=== PATIENT | female | born 1990 | race Caucasian/White ===

== ENCOUNTER 2018-12-06 07:48 | Emergency (ER) | payer OTHER ==
[~2018-12-06] VITALS: Ht 167.6 cm; Wt 68.5 kg
[~2018-12-06 07:48] MED LIST: ACETAMINOPHEN-1 EAC1 PO; BACTRIM DS TAB1 EACH PO; BENADRYL25 MG PO; IBUPROFEN400 MG PO; IBUPROFEN600 MG PO; IBUPROFEN800 MG PO; IRON18 MG PO; KEFLEX500 MG PO; KNEE SUPPORT1 EACH MISC; MACROBID 100 M100 MG PO; NORCO 5-325 TA1 EACH PO; NYSTATIN100000 UN1 PO; PENICILLIN V P500 MG PO; PRENATAL-FOLIC1 EACH PO; PYRIDIUM200 MG PO
[2018-12-06] MEDS ORDERED: KETOROLAC TROME10 MG PO (08:21)
[2018-12-06] MEDS ORDERED: BACLOFEN10 MG PO (08:21)
== END 2018-12-06 08:42 | disposition home or self-care (01) ==
LOC: ED 07:48
DX: M99.01 Segmental and somatic dysfunction of cervical region (principal); Z87.442 Personal history of urinary calculi; F17.200 Nicotine dependence, unspecified, uncomplicated; Z88.5 Allergy status to narcotic agent; Z79.899 Other long term (current) drug therapy
CPT/HCPCS: 99283

== ENCOUNTER 2019-08-20 19:39 | Emergency (ER) | payer OTHER ==
[~2019-08-20] VITALS: Ht 167.6 cm; Wt 68.5 kg
--- OUTSIDE RECORDS SUMMARY | ~2019-08-20 | XMS | Clinical Summary ---
Demographics + + + | Address | [address] | | | [place] [address] | + + + | Home Phone | | + + + | Preferred Language | Unknown | + + + | Marital Status | Single | + + + | Religion Affiliation | Unknown | + + + | Race | Unknown | + + + | Ethnic Group | Unknown | + + + Author + + + | Author | [facility] | | | and [place] | + + + | Organization | [facility] | | | and [place] | + + + | Address | Unknown | + + + | Phone | Unavailable | + + + Support + + +---------+ + | Name | Relationship | Address | Phone | + + +---------+ + | Mary Brumfield | ECON | Unknown | | + + +---------+ + Care Team Providers + +------+ + | Care Financial Investigator Name | Role | Phone | + +------+ + | No, Physician | PCP | Unavailable | + +------+ + Allergies + + + + + + | Active Allergy | Reactions | Severity | Noted | Comments | | | | | Date | | + + + + + + | Tramadol | | | 03/23/20 | dizziness | | | | | 15 | | + + + + + + Medications + + + +---------+------+------+-------+ | Medication | Sig | Dispensed | Refills | Star | End | Statu | | | | | | t | Date | s | | | | | | Date | | | + + + +---------+------+------+-------+ | | Inject into the | | 0 | | | Activ | | MedroxyPROGESTERone | muscle. | | | | | e | | Acetate | | | | | | | | (DEPO-PROVERA IM) | | | | | | | + + + +---------+------+------+-------+ | acetaminophen | Place 650 mg | | 0 | | | Activ | | (TYLENOL) 650 mg | rectally every 4 | | | | | e | | suppository | hours as needed for | | | | | | | | Fever. | | | | | | + + + +---------+------+------+-------+ | ibuprofen | Take 800 mg by mouth | | 0 | | | Activ | | (ADVIL,MOTRIN) 800 | every 6 hours as | | | | | e | | MG tablet | needed for Pain. | | | | | | + + + +---------+------+------+-------+ Active Problems + + + | Problem | Noted Date | + + + | Chronic tonsillitis | 03/30/2015 | + + + Family History + + +------+ + | Medical History | Relation | Name | Comments | + + +------+ + | Diabetes | | | | + + +------+ + | Hypertension | | | | + + +------+ + + +------+--------+ + | Relation | Name | Status | Comments | + +------+--------+ + Social History + +-------+ +--------+------+ | Tobacco Use | Types | Packs/Day | Years | Date | | | | | Used | | + +-------+ +--------+------+ | Current Every Day | | | | | | Smoker | | | | | + +-------+ +--------+------+ + + + | Sex Assigned at | Date Recorded | | | | + + + | Not on file | | + + + + + + + | Job Start Date | Occupation | Industry | + + + + | Not on file | Not on file | Not on file | + + + + + + + + | Travel History | Travel Start | Travel End | + + + + + + | No recent travel history available. | + + Last Filed Vital Signs + + + + | Vital Sign | Reading | Time Taken | + + + + | Blood Pressure | 100/60 | 03/29/2015 1543 PDT | + + + + | Pulse | 67 | 03/29/2015 1543 PDT | + + + + | Temperature | - | - | + + + + | Respiratory Rate | 18 | 03/23/20151404 PDT | + + + + | Oxygen Saturation | 93% | 03/29/20151542 PDT | + + + + | Inhaled Oxygen | - | - | | Concentration | | | + + + + | Weight | 63.5 kg (140 lb) | 03/29/20151542 PDT | + + + + | Height | 167.6 cm (5' 6") | 03/29/20151542 PDT | + + + + | Body Mass Index | 22.6 | 03/29/2015 1543 PDT | + + + + Plan of Treatment + + + + + | Health Maintenance | Due Date | Last Done | Comments | + + + + + | Vaccine: | | | | | Dtap/Tdap/Td (1 - | 9 | | | | Tdap) | | | | + + + + + | Cervical Cancer | | | | | Screening (Pap) | 1 | | | + + + + + | Vaccine: Influenza | | | | | (#1) | 9 | | | + + + + + Results Not on filefrom Last 3 Months Insurance + +--------+ +--------+ +---------+--------+ | Payer | Benefi | Subscriber | Effect | Phone | Address | Type | | | t Plan | ID | mekhi | | | | | | / | | Dates | | | | | | Group | | | | | | + +--------+ +--------+ +---------+--------+ | [employer] | [employer] | [id number] | 03/04/20 | [phone] | | Medica | | MEDICAID HMO | HEALTH | | 15-Pre | 1 | | id | | | MDCD | | sent | | | | | | HMO [place] | | | | | | + +--------+ +--------+ +---------+--------+ + +--------+ +--------+ + + | Guarantor Name | Accoun | Relation to | Date | Phone | Billing Address | | | t Type | Patient | of | | | | | | | | | | + +--------+ +--------+ + + | Anila Sampson | Person | Self [birth year] | [address] | | | al/[place] | | 1990 | [phone] | [address] [place] | | | dong | | | 2 (Home) | [phone] | + +--------+ +--------+ + + Advance Directives Patient has advance care planning documents on file. For more information, please contact:[facility] [place] [address]
--- OUTSIDE RECORDS SUMMARY | ~2019-08-20 | XMS | Clinical Summary ---
Demographics + + + | Address | [address] | | | [place] [address] | + + + | Home Phone | | + + + | Preferred Language | Unknown | + + + | Marital Status | Single | + + + | Scientologist Affiliation | Unknown | + + + | Race | Unknown | + + + | Ethnic Group | Unknown | + + + Author + + + | Author | [facility] | | | and [place] | + + + | Organization | [facility] | | | [...] Team Providers + +------+ + | Care Child Development Professor Name | Role | Phone | + [...] | [employer] | [employer] | [id number] | 03/04/20 | [phone] | | Medica | | MEDICAID HMO [...] | | al/[place]avier | | 1990 | [phone] | [address] [place] | | | dong | | | 2 (Home) | [phone] | + +--------+ +--------+ + + Advance Directives Patient has advance care planning documents on file. For more information, please contact:Located within [facility] [place] [address]
[~2019-08-20 19:39] MED LIST changes: +BACLOFEN10 MG PO; +KETOROLAC TROME10 MG PO
== END 2019-08-20 21:09 | disposition home or self-care (01) ==
LOC: ED 19:39
DX: G89.29 Other chronic pain (principal); M54.2 Cervicalgia; F17.200 Nicotine dependence, unspecified, uncomplicated; Z88.5 Allergy status to narcotic agent; Z79.899 Other long term (current) drug therapy
CPT/HCPCS: 99283

== ENCOUNTER 2020-11-01 23:03 | Emergency (ER) | payer OTHER ==
[~2020-11-01] VITALS: Ht 167.6 cm; Wt 67.1 kg
[2020-11-02] MEDS ORDERED: FLAGYL500 MG PO (02:38)
[2020-11-02] MEDS ORDERED: DOXYCYCLINE HY100 MG PO (02:38)
== END 2020-11-02 03:10 | disposition home or self-care (01) ==
LOC: ED 23:03
DX: R10.2 Pelvic and perineal pain (principal); F17.200 Nicotine dependence, unspecified, uncomplicated; Z88.5 Allergy status to narcotic agent
CPT/HCPCS: 74177; 80053; 81001; 83690; 84703; 85025; 87491; 87591; 99284-25; J0696; J1885; J7121; Q9967

== ENCOUNTER 2021-06-09 16:43 | Emergency (ER) | payer OTHER ==
[~2021-06-09] VITALS: Ht 167.6 cm; Wt 67.1 kg
[~2021-06-09 16:43] MED LIST changes: +DOXYCYCLINE HY100 MG PO; +FLAGYL500 MG PO
== END 2021-06-09 17:36 | disposition home or self-care (01) ==
LOC: ED 16:43
DX: S90.32XA Contusion of left foot, initial encounter (principal); W22.8XXA Striking against or struck by other objects, initial encounter; F17.200 Nicotine dependence, unspecified, uncomplicated; Z88.5 Allergy status to narcotic agent
CPT/HCPCS: 73630; 99283-25

== ENCOUNTER 2022-03-01 06:53 | Inpatient (IN) | payer OTHER ==
[~2022-03-01] VITALS: Ht 162.6 cm; Wt 76.2 kg
--- NOTE | 2022-03-14 08:54 | NUR ---
03/14/22 0854 Beck,Chante 0882 PT TO ROOM 104 WITH FBC RN AND AT BEDSIDE. VSS. PT DENIES PAIN AND NAUSEA. PT UNABLE TO MOVE LEG OR FEET, SPINAL EDUCATION GIVEN, PT DENIES SOB. IV SITE WNL AND INFUSING LR WITH 30 PIT. 0840 BABY TO CHEST WITH FBC RN. HOB INCREASED SLIGHTLY AND PT CONTINUES TO DENY NAUSEA.
--- NOTE | 2022-03-15 12:02 | PR ---
[facility] [address] [place] [address] Signed PP Progress Notes Datetime Report Generated by CPN: 03/15/2022 12:01 SUBJECTIVE: [id number] Pain: Within Normal Limits Nausea/Vomiting: Denies Vital Signs: [id number] Vital Signs: Reviewed; Within Normal Limits Notable Details: PP Hgb/Hct = 10.2/30.2 EXAM: Ongoing Abdomen/Uterus: Normal Lochia: Normal Extremities: Normal Incision: Normal IMPRESSION/PLAN/PROCEDURES: [id number] Impression: Normal Progression Plan: Continue Present Management Procedures: None Progress Notes: Doing well, without complaint, up moving around, voiding without difficulty. Signing Physician: Zaida Cavazos MD Copies: ~ *Electronically Signed* 03/15/22 1201 ZAIDA CAVAZOS MD PATIENT NAME: CASI ANGELA PROGRESS NOTE DATE OF : 90 PHYSICIAN: ZAIDA CAVAZOS MD RPT #: [id number] REPORT IS CONFIDENTIAL AND NOT TO BE RELEASED WITHOUT AUTHORIZATION
--- NOTE | 2022-03-15 12:02 | OR ---
[facility] [address] [place], [place] [address] Signed DATE OF OPERATION: 03/14/2022 SURGEON: Maxim Watts MD The patient of Dr. Watts. PREOPERATIVE DIAGNOSIS: Term , previous section x2. POSTOPERATIVE DIAGNOSIS: Term , previous section x2. PROCEDURE: Repeat low transverse segment section, delivery of live female infant. RAILROADER: Dr. Ritchie. ANESTHESIA: Spinal. ESTIMATED BLOOD LOSS: 500 mL. COMPLICATIONS: None. DRAINS: Kaplan to bladder. FINDINGS: Live female infant, Apgars 8 and 9. Weight 6 pounds 13 ounces. Normal uterus, normal tubes and ovaries bilateral. DESCRIPTION OF PROCEDURE: The patient was brought to the operating room, placed supine in position. After adequate spinal anesthesia was obtained was prepped and draped usual sterile fashion. A Pfannenstiel skin incision was made through previous surgical scar using the scalpel. Subcutaneous tissue was dissected with scalpel and Bovie. The fascia was nicked with scalpel and extended in transverse fashion using curved scissors. The underlying Electronically Signed By: MAXIM WATTS MD 03/15/22 1202 PATIENT NAME: CASI ANGELA OPERATIVE REPORT DATE OF : 89 REPORT #: [id number] PHYSICIAN: MAXIM WATTS MD PCP: MAGALY CAMARA MD REPORT IS CONFIDENTIAL AND NOT TO BE RELEASED WITHOUT AUTHORIZATION [facility] [address] [place], [place] [address] Signed abdominal musculature was bluntly and sharply from the fascia above and below the incision. The abdominal musculature was bluntly and sharply along the midline. The peritoneum was grasped, hemostats elevated, nicked with curved scissors and extended in vertical fashion using curved scissors. The Hernando self-retaining retractor was inserted into the incision and tightened in place. The lower uterine segment was identified. The bladder noted to be well below the area of dissection. Lower uterine segment was carefully nicked with the scalpel and the incision extended in transverse fashion using curved scissors. Clear fluid came from the incision. The was noted to be in the vertex SIDDHARTHA presentation. Infant head easily delivered. The rest of the was easily delivered from the incision and the cord doubly clamped and cut. The infant passed off table in good condition awaiting nurse. The placenta was then manually removed. The uterine cavity explored a lap pad to remove any retained membranes. An angle stitch of 0 Monocryl was placed at one in the incision and a running locking stitch of 0-Monocryl starting at the other end used to close the incision. A second running stitch of 0 Monocryl was used to imbricate the first layer. Good hemostasis was noted except for one small area at the right angle which was controlled with a vikryv-py-peogm stitch of 0 Monocryl. When good hemostasis was obtained, the entire pelvis was irrigated, suctioned, and examined, and any superficial bleeding spots cauterized with the Bovie and good hemostasis was obtained. The Hernando retractor was removed. A sheet of ACell placed over the lower uterine segment to help with healing. The anterior wall peritoneum was then closed using running stitch of 2-0 Vicryl. The abdominal musculature was reapproximated using interrupted stitches of 0 Vicryl suture. The abdominal wall incision was irrigated, suctioned, and examined, and any bleeding spots cauterized with the Bovie. Powdered ACell was sprinkled over the abdominal musculature to help with healing. The fascia was then closed using two running stitch of 0 Vicryl suture meeting in the midline. The subcutaneous tissue was irrigated, suctioned, and examined, and any bleeding spots cauterized with the Bovie. The subcutaneous tissue was then closed using interrupted stitches of 3-0 Vicryl sutures. Skin was reapproximated using skin clips. The patient tolerated the procedure well, went to recovery room in good condition. The sponge, needle, and instrument count were correct at the end of procedure. Maxim Watts MD MJB/MODL /[id number] Electronically Signed By: MAXIM WATTS MD 03/15/22 1202 PATIENT NAME: CASI ANGELA OPERATIVE REPORT DATE OF : [birth year] REPORT #: [id number] PHYSICIAN: MAXIM WATTS MD PCP: MAGALY CAMARA MD REPORT IS CONFIDENTIAL AND NOT TO BE RELEASED WITHOUT AUTHORIZATION [address] [address] Signed Copies: ~ Electronically Signed By: MAXIM WATTS MD 03/15/22 1202 PATIENT NAME: JULIO CÉSARCASIDANDRE GAMBLE OPERATIVE REPORT DATE OF : [birth year] REPORT #: [id number] PHYSICIAN: MAXIM WATTS MD PCP: MAGALY CAMARA MD REPORT IS CONFIDENTIAL AND NOT TO BE RELEASED WITHOUT AUTHORIZATION
--- NOTE | 2022-03-16 11:32 | PR ---
[facility] [address] [place] [address] Signed PP Progress Notes Datetime Report Generated by CPN: 03/16/2022 11:32 SUBJECTIVE: [id number] Pain: Within Normal Limits Nausea/Vomiting: Denies Vital Signs: [id number] Vital Signs: Reviewed; Within Normal Limits Notable Details: PP Hgb/Hct = 10.2/30.2 EXAM: Met Abdomen/Uterus: Normal Lochia: Normal Extremities: Normal Incision: Normal IMPRESSION/PLAN/PROCEDURES: [id number] Impression: Normal Progression Plan: Discharge Procedures: None Progress Notes: Doing well, without compalint, normal post-op tenderness, moving around room well, ready to go home. Signing Physician: Zaida Cavazos MD Copies: ~ *Electronically Signed* 03/16/22 1132 ZAIDA CAVAZOS MD PATIENT NAME: CASI ANGELA PROGRESS NOTE DATE OF : 89 PHYSICIAN: ZAIDA CAVAZOS MD RPT #: [id number] REPORT IS CONFIDENTIAL AND NOT TO BE RELEASED WITHOUT AUTHORIZATION
== END 2022-03-16 12:25 | disposition home or self-care (01) | DRG 788 ==
LOC: FBC 03-14 05:40
PROVIDERS: ADMIT General Practice; ATTEND General Practice
PROC: 10D00Z1 Extraction of Products of Conception, Low, Open Approach (ICD-10-PCS; principal; 2022-03-14 06:45)
DX: O34.211 Maternal care for low transverse scar from previous cesarean delivery (principal); Z37.0 Single live birth; Z3A.39 39 weeks gestation of pregnancy; Z20.822 Contact with and (suspected) exposure to COVID-19
CPT/HCPCS: 36415; 85027; 86850; 86900; 86901; A9270; J0690; J2001; J2274; J2405; J2550; J2590; J2765; J7121

== ENCOUNTER 2023-06-14 07:30 | Emergency (ER) | payer OTHER ==
[~2023-06-14] VITALS: Ht 152.4 cm; Wt 70.1 kg
[2023-06-14 07:58] LABS: BASOPHILS 0.4 % (0-2); EOSINOPHILS 0.6 % (0-6); HEMATOCRIT 43.9 % (35.0-50.0); HEMOGLOBIN 14.2 g/dL (12.0-18.0); LYMPHOCYTES 13.8 % (24-44); MCH 30.1 (27-36); MCHC 32.3 g/dl (30-36); MCV 93.1 fl (81-99); MONOCYTES 3.9 % (0-12); NEUTROPHILS 81.3 % (39-80); PLATELET COUNT 302 K/uL (140-440); RBC 4.72 M/ul (4.3-5.7); RDW 13.6 (10.5-15.0)
[2023-06-14 08:09] LABS: ALBUMIN 3.7 g/dL (3.4-5.0); ALBUMIN/GLOBULIN RATIO 0.93 (1.1-2.4); ANION GAP 13.1 (7-21); BILIRUBIN, TOTAL 0.2 ng/dL (0.2-1.0); BUN/CREATININE RATIO 19.04 (6.0-28.6); CALCIUM 8.8 mg/dL (8.5-10.1); CREATININE, SERUM 0.63 mg/dL (0.55-1.02); POTASSIUM 4.1 mmol/L (3.5-5.1); PROTEIN, TOTAL 7.7 g/dL (6.4-8.2)
[2023-06-14 09:35] LABS: BILIRUBIN, URINE NEGATIVE (negative); BLOOD/HGB, URINE NEGATIVE (Negative); KETONE, URINE NEGATIVE (Negative); LEUK ESTERASE, URINE NEGATIVE (negative); NITRITE, URINE NEGATIVE (negative)
[2023-06-14] MEDS ORDERED: ONDANSETRON ODT4 MG PO (09:54)
[2023-06-14 10:03] VITALS: BP 100/78
== END 2023-06-14 10:06 | disposition home or self-care (01) ==
LOC: ED 07:30
PROVIDERS: Student in an Organized Health Care Education/Training Program
DX: K52.9 Noninfective gastroenteritis and colitis, unspecified (principal); G43.909 Migraine, unspecified, not intractable, without status migrainosus; F17.200 Nicotine dependence, unspecified, uncomplicated; Z88.5 Allergy status to narcotic agent; Z87.442 Personal history of urinary calculi
CPT/HCPCS: 36415; 80053; 81003; 83690; 84703; 85025; 96374; 96375; 99284-25; J1200; J1885; J2765; J7030

== ENCOUNTER 2024-05-02 06:55 | Emergency (ER) | payer SELFPAY ==
[~2024-05-02] VITALS: Ht 162.6 cm; Wt 80.5 kg
[~2024-05-02 06:55] MED LIST changes: +ONDANSETRON ODT4 MG PO
[2024-05-02] MEDS ORDERED: predniSONE 20 MG TAB PO ONE (07:30)
[2024-05-02] MEDS ORDERED: AMOXICILLIN 500 MG CAP PO ONE (07:45)
[2024-05-02] MEDS ORDERED: AMOXICILLIN500 MG PO (07:46)
[2024-05-02 07:53] VITALS: BP 108/62
== END 2024-05-02 07:53 | disposition home or self-care (01) ==
LOC: ED 06:55
DX: J02.0 Streptococcal pharyngitis (principal); F17.200 Nicotine dependence, unspecified, uncomplicated; Z88.5 Allergy status to narcotic agent
CPT/HCPCS: 87651; 99283; J7512

== ENCOUNTER 2024-08-30 13:35 | Emergency (ER) | payer OTHER ==
[~2024-08-30] VITALS: Ht 162.6 cm; Wt 78.6 kg
[~2024-08-30 13:35] MED LIST changes: +AMOXICILLIN500 MG PO
[2024-08-30] MEDS ORDERED: SODIUM CHLORIDE 0.9% 1,000 ML IV PRN (14:00)
[2024-08-30] MEDS ORDERED: METOCLOPRAMIDE HCL 10 MG/2 ML SDV IV ONE (14:00)
[2024-08-30] MEDS ORDERED: diphenhydrAMINE HCL 50 MG/ML VIAL IV ONE (14:00)
[2024-08-30] MEDS ORDERED: KETOROLAC TROMETHAMINE 30 MG/ML VIAL IV ONE (14:00)
[2024-08-30] MEDS ORDERED: ONDANSETRON ODT4 MG PO (16:15)
[2024-08-30] MEDS ORDERED: KETOROLAC TROME10 MG PO (16:15)
[2024-08-30 16:25] VITALS: BP 105/68
== END 2024-08-30 16:26 | disposition home or self-care (01) ==
LOC: ED 13:35
DX: G43.909 Migraine, unspecified, not intractable, without status migrainosus (principal); F17.200 Nicotine dependence, unspecified, uncomplicated; Z88.5 Allergy status to narcotic agent
CPT/HCPCS: 96361; 96374; 96375; 99283-25; J1200; J1885; J2765; J7030

== ENCOUNTER 2025-03-20 07:51 | Emergency (ER) | payer OTHER ==
[~2025-03-20] VITALS: Ht 162.6 cm; Wt 78.6 kg
[2025-03-20 08:33] LABS: EOSINOPHILS 3.8 % (0.7-5.8); HEMOGLOBIN 13.8 g/dL (11.2-15.7); LYMPHOCYTES 33.3 % (19.3-51.7); MCH 30.3 PG (25.6-32.2); MCHC 32.9 g/dL (32.2-35.5); MCV 92.3 fL (79.4-94.8); MONOCYTES 8.6 % (4.7-12.5); NEUTROPHILS 52.9 % (34.0-71.1); PLATELET COUNT 251 K/uL (182-369); RBC 4.55 M/uL (3.93-5.22)
[2025-03-20 08:55] LABS: ALBUMIN 3.8 g/dL (3.4-5.0); ALBUMIN/GLOBULIN RATIO 0.97 (1.1-2.4); ANION GAP 10.2 (7-21); BILIRUBIN, TOTAL 0.6 mg/dL (0.2-1.0); BUN/CREATININE RATIO 14.28 (6.0-28.6); CALCIUM 8.8 mg/dL (8.5-10.1); CREATININE, SERUM 0.63 mg/dL (0.55-1.02); POTASSIUM 4.2 mmol/L (3.5-5.1); PROTEIN, TOTAL 7.7 g/dL (6.4-8.2)
[2025-03-20 09:08] LABS: ABO A; RH POSITIVE
[2025-03-20 09:17] LABS: BILIRUBIN, URINE NEGATIVE (negative); BLOOD/HGB, URINE NEGATIVE (Negative); KETONE, URINE NEGATIVE (Negative); LEUK ESTERASE, URINE NEGATIVE (negative); NITRITE, URINE NEGATIVE (negative)
[2025-03-20 09:53] VITALS: BP 106/88
== END 2025-03-20 09:53 | disposition home or self-care (01) ==
LOC: ED 07:51
PROVIDERS: Emergency Medicine
DX: N93.9 Abnormal uterine and vaginal bleeding, unspecified (principal); F17.200 Nicotine dependence, unspecified, uncomplicated; Z88.8 Allergy status to other drugs, medicaments and biological substances
CPT/HCPCS: 36415; 76801; 76817; 80053; 81003; 84702; 85025; 86900; 86901; 99284-25

== ENCOUNTER 2025-04-09 10:21 | Emergency (ER) | payer OTHER ==
[~2025-04-09] VITALS: Ht 162.6 cm; Wt 78.6 kg
--- OUTSIDE RECORDS SUMMARY | 2025-04-09 10:26 | XMS ---
PreManage Notification: CASI ANGELA Security Software Applications Architect Events No recent Security Events currently on file CRITERIA MET - [facility] - 2 Visits in 30 Days CARE PROVIDERS -, [facility] Dentist: Resident Services Coordinator Current [place] PHONE: [phone] -[facility]- Dentist: Resident Services Coordinator Current [facility] PHONE: [phone] [facility]: [facility] Current FAMILY PHONE: [phone] BERNARD Mckoy Nurse Practitioner: Family Current PHONE: Unknown Kathleen has no Care Guidelines for this patient. Vick VISIT COUNT (12 MO.) 4 [facility] TOTAL 4 NOTE: Visits indicate total known visits. ED/UCC VISIT TRACKING (12 MO.) 04/09/2025 10:22 [facility] [place] TYPE: Emergency COMPLAINT: - VAGINAL BLEEDING 03/20/2025 07:52 [facility] [place] TYPE: Emergency COMPLAINT: - VAGINAL BLEEDING/ 6 WEEKS PREG DIAGNOSES: - Abnormal uterine and vaginal bleeding, unspecified - Allergy status to other drugs, medicaments and biological substances - Nicotine dependence, unspecified, uncomplicated 08/30/2024 13:35 [facility] [place] TYPE: Emergency COMPLAINT: - HEADACHE DIAGNOSES: - Allergy status to narcotic agent - Headache, unspecified - Migraine, unspecified, not intractable, without status migrainosus - Nicotine dependence, unspecified, uncomplicated 05/02/2024 06:55 [facility] [place] TYPE: Emergency COMPLAINT: - COLD SYMPTOMS DIAGNOSES: - Acute pharyngitis, unspecified - Allergy status to narcotic agent - Nicotine dependence, unspecified, uncomplicated - Streptococcal pharyngitis INPATIENT VISIT TRACKING (12 MO.) No inpatient visits to display in this time frame [email or web address]
[2025-04-09] MEDS ORDERED: SODIUM CHLORIDE 0.9% 1,000 ML IV PRN (10:45)
[2025-04-09] MEDS ORDERED: HYDROmorphone HCL 1 MG/ML SYR IV ONE (10:45)
[2025-04-09] MEDS ORDERED: ondansetron HCL 4 MG/2 ML VIAL IV ONE ×2 (10:45→12:15)
[2025-04-09 10:53] LABS: BASOPHILS 0.6 % (0.1-1.2); EOSINOPHILS 1.9 % (0.7-5.8); HEMATOCRIT 41.7 % (34.1-44.9); HEMOGLOBIN 14.1 g/dL (11.2-15.7); LYMPHOCYTES 28.1 % (19.3-51.7); MCHC 33.8 g/dL (32.2-35.5); MCV 91.6 fL (79.4-94.8); MONOCYTES 6.4 % (4.7-12.5); NEUTROPHILS 62.6 % (34.0-71.1); PLATELET COUNT 269 K/uL (182-369); RBC 4.55 M/uL (3.93-5.22)
[2025-04-09 11:12] LABS: ALBUMIN 3.9 g/dL (3.4-5.0); ALBUMIN/GLOBULIN RATIO 0.98 (1.1-2.4); ANION GAP 14.7 (7-21); BILIRUBIN, TOTAL 0.5 mg/dL (0.2-1.0); BUN/CREATININE RATIO 12.16 (6.0-28.6); CALCIUM 8.9 mg/dL (8.5-10.1); CREATININE, SERUM 0.74 mg/dL (0.55-1.02); POTASSIUM 3.7 mmol/L (3.5-5.1); PROTEIN, TOTAL 7.9 g/dL (6.4-8.2)
[2025-04-09 11:17] LABS: ABO A; RH POSITIVE
[2025-04-09 11:38] LABS: BILIRUBIN, URINE NEGATIVE (negative); BLOOD/HGB, URINE LARGE (Negative); KETONE, URINE SMALL (Negative); LEUK ESTERASE, URINE NEGATIVE (negative); NITRITE, URINE NEGATIVE (negative); PH, URINE 6.5 (5-7)
[2025-04-09 11:51] LABS: BACTERIA, URINE NONE SEEN /hpf (negative); CASTS, URINE NONE SEEN \\lpf; COLLECTION TYPE, URINE CLEAN CATCH; CRYSTALS, URINE NONE SEEN (0-1+); EPITHELIAL CELLS, URINE SQUAMOUS 3+ /lpf (0-1+); REFLEX CULTURE, URINE No (No); WHITE BLOOD CELLS, URINE 0-1 /HPF (0-5)
[2025-04-09] MEDS ORDERED: PROCHLORPERAZINE EDISYLATE 10 MG/2 ML VIAL IV ONE (12:45)
[2025-04-09] MEDS ORDERED: diphenhydrAMINE HCL 50 MG/ML VIAL IV ONE (12:45)
[2025-04-09] MEDS ORDERED: ONDANSETRON ODT4 MG PO (12:52)
[2025-04-09] MEDS ORDERED: PROMETHAZINE HC25 M1 PO (12:52)
[2025-04-09] MEDS ORDERED: HYDROCODON-ACE1 EA10 PO (12:52)
[2025-04-09 13:33] VITALS: BP 92/57
== END 2025-04-09 13:33 | disposition home or self-care (01) ==
LOC: ED 10:21
PROVIDERS: Emergency Medicine
DX: O36.80X0 Pregnancy with inconclusive fetal viability, not applicable or unspecified (principal); F17.200 Nicotine dependence, unspecified, uncomplicated; Z88.5 Allergy status to narcotic agent
CPT/HCPCS: 36415; 76801; 76817; 80053; 81001; 84702; 84703; 85025; 86900; 86901; 96374; 96375; 96376; 99284-25; J0780; J1171; J1200; J2405; J7030

== ENCOUNTER 2025-07-06 11:15 | Emergency (ER) | payer OTHER ==
[~2025-07-06] VITALS: Ht 162.6 cm; Wt 79.0 kg
[~2025-07-06 11:15] MED LIST changes: +HYDROCODON-ACE1 EA10 PO; +PROMETHAZINE HC25 M1 PO
[2025-07-06] MEDS ORDERED: METOCLOPRAMIDE HCL 10 MG/2 ML SDV IV ONE (11:30)
[2025-07-06] MEDS ORDERED: KETOROLAC TROMETHAMINE 15 MG/ML VIAL IV ONE (11:30)
[2025-07-06] MEDS ORDERED: SODIUM CHLORIDE 0.9% 1,000 ML IV PRN (11:30)
[2025-07-06] MEDS ORDERED: BUTALB-ACETAMI1 EAC3 PO (12:03)
[2025-07-06 12:44] VITALS: BP 94/50
== END 2025-07-06 12:40 | disposition home or self-care (01) ==
LOC: ED 11:15
DX: G43.909 Migraine, unspecified, not intractable, without status migrainosus (principal); R10.13 Epigastric pain; R11.2 Nausea with vomiting, unspecified; F17.200 Nicotine dependence, unspecified, uncomplicated; Z87.442 Personal history of urinary calculi; Z88.5 Allergy status to narcotic agent
CPT/HCPCS: 96361; 96374; 96375; 99283-25; J1200; J1885; J2765; J7030

== ENCOUNTER 2025-08-22 08:17 | Emergency (ER) | payer OTHER ==
[~2025-08-22] VITALS: Ht 162.6 cm; Wt 77.2 kg
--- OUTSIDE RECORDS SUMMARY | ~2025-08-22 | XMS | Continuity of Care Document ---
Demographics + + + | Address | [address] | | | [place] [address] | + + + | Preferred Language | Unknown | + + + | Marital Status | Never | + + + | Amish Affiliation | Unknown | + + + | Race | White | + + + | Ethnic Group | Not or | + + + Author + + + | Author | [facility] | + + + | Organization | [facility] | + + + | Address | [address] | | | [place] [address] | + + + | Phone | | + + + Care Team Providers + + + + | Care Line Mover Name | Role | Phone | + + + + Unavailable | Unavailable | + + + + Unavailable | Unavailable | + + + + Allergies No information. Encounters No information. Functional Status No information. Immunizations No information. Medications + + + + | date | description | facility | + + + + | (no date) | DIPHENHYDRAMINE HCL | [facility] | | | | [facility] | + + + + | (no date) | | [facility] | | | BUTALBIT/ACETAMIN/CAFF/CODE | [facility] | | | [facility] | | + + + + | (no date) | IBUPROFEN | [facility] | | | | [facility] | + + + + | (no date) | PENICILLIN V POTASSIUM | [facility] | | | | [facility] | + + + + | (no date) | HYDROCODONE | [facility] | | | BIT/ACETAMINOPHEN | [facility] | + + + + Problems No information. Procedures No information. Results/Labs No information. Social History +--------+ + + | date | description | facility | +--------+ + + Vital Signs + + + +---------+ | date | measurement | value | units | + + + +---------+ | 2025-07-06 00:00 | BMI | 29.9 | kg/m2 | + + + +---------+ | 2025-07-06 00:00 | BP_diastolic | 50 | mmHg | + + + +---------+ | 2025-07-06 00:00 | BP_systolic | 94 | mmHg | + + + +---------+ | 2025-07-06 00:00 | heart_rate | 65 | /min | + + + +---------+ | 2025-07-06 00:00 | height_metric | 162.56 | cm | + + + +---------+ | 2025-07-06 00:00 | height_standard | 64 | in | + + + +---------+ | 2025-07-06 00:00 | o2_saturation | 100 | % | + + + +---------+ | 2025-07-06 00:00 | respiration_rate | 16 | /min | + + + +---------+ | 2025-07-06 00:00 | | 97.9 | F | | | temperature_standar | | | | | d | | | + + + +---------+ | 2025-07-06 00:00 | weight_metric | 78.999 | kg | + + + +---------+ | 2025-07-06 00:00 | weight_standard | 174.162 | lb | + + + +---------+"
[~2025-08-22 08:17] MED LIST changes: +BUTALB-ACETAMI1 EAC3 PO
[2025-08-22] MEDS ORDERED: predniSONE 20 MG TAB PO ONE (09:00)
[2025-08-22] MEDS ORDERED: PREDNISONE20 MG PO (09:07)
[2025-08-22 09:21] VITALS: BP 102/39
== END 2025-08-22 09:20 | disposition home or self-care (01) ==
LOC: ED 08:17
DX: S33.5XXA Sprain of ligaments of lumbar spine, initial encounter (principal); X58.XXXA Exposure to other specified factors, initial encounter; Z87.442 Personal history of urinary calculi; F17.200 Nicotine dependence, unspecified, uncomplicated; Z88.8 Allergy status to other drugs, medicaments and biological substances; Z79.899 Other long term (current) drug therapy
CPT/HCPCS: 99283; J7512